=== PATIENT | male | born 1960 | race Caucasian/White ===

== ENCOUNTER 2019-11-28 08:15 | Emergency (ER) | payer MEDICARE, BC ==
[~2019-11-28] VITALS: Ht 180.3 cm; Wt 80.9 kg
[2019-11-28 08:25] VITALS: BP 124/79
[2019-11-28] MEDS ORDERED: AZIT250T83 PO (08:41)
== END 2019-11-28 09:00 | disposition home or self-care (01) ==
LOC: ER 08:16
DX: H92.02 Otalgia, left ear (principal); J02.9 Acute pharyngitis, unspecified
CPT/HCPCS: 99283

== ENCOUNTER 2020-03-19 09:57 | Emergency (ER) | payer BC, MEDICARE, OTHER ==
[~2020-03-19] VITALS: Ht 180.3 cm; Wt 81.8 kg
[2020-03-19 10:11] VITALS: BP 132/83
[2020-03-19] MEDS ORDERED: LIDOcaine 1% W/epiNEPHrine 1:200,000 10ml vial IJ ONE (10:40)
[2020-03-19] MEDS ORDERED: TETanus/Pertussis (Acell)/Diphther VAC/PF (Tdap-Adult) 0.5ml syringe IMVAC ONE (10:40)
== END 2020-03-19 12:10 | disposition home or self-care (01) ==
LOC: ER 09:57
DX: S61.211A Laceration without foreign body of left index finger without damage to nail, initial encounter (principal); S61.213A Laceration without foreign body of left middle finger without damage to nail, initial encounter; Z85.9 Personal history of malignant neoplasm, unspecified; W26.8XXA Contact with other sharp object(s), not elsewhere classified, initial encounter; Y93.89 Activity, other specified; Y92.89 Other specified places as the place of occurrence of the external cause; Y99.8 Other external cause status
CPT/HCPCS: 12002; 73140; 90471; 90715; 99283

== ENCOUNTER 2022-10-02 05:32 | Emergency (ER) | payer OTHER, MEDICARE, BC ==
[~2022-10-02] VITALS: Ht 180.3 cm; Wt 87.7 kg
[2022-10-02 06:57] VITALS: BP 123/84
[2022-10-02] MEDS ORDERED: ketorolac trometh. 30mg/ml inj. IM ONE (07:10)
[2022-10-02] MEDS ORDERED: amox tr/potassium clavulanate 875/125mg TAB PO ONE (07:10)
[2022-10-02] MEDS ORDERED: IBUP-1986 PO ×3 (07:11→07:32)
[2022-10-02] MEDS ORDERED: AMOX-580 PO ×3 (07:11→07:32)
== END 2022-10-02 07:30 | disposition home or self-care (01) ==
LOC: ER 05:33
DX: K04.7 Periapical abscess without sinus (principal)
CPT/HCPCS: 96372; 99284; J1885